=== PATIENT | male | born 1990 | race Caucasian/White ===

== ENCOUNTER 2016-08-07 12:12 | Emergency (ER) | payer OTHER ==
[~2016-08-07] VITALS: Ht 182.9 cm; Wt 79.5 kg
[2016-08-07 12:22] VITALS: BP 129/80; PULSE 86; RESP 16; O2SAT 96
--- NOTE | 2016-08-07 12:34 | ED.REPORT ---
HPI-Extremity Problem Lower Date of Service Aug 07, 2016 ED Provider: Dr. Lindsay 26 y/o male with a hx of prior R ACL tear and two R knee surgeries presents to the ED complaining of right knee pain, onset 4 days ago after a fall while hiking last Wednesday. Pt was seen at urgent care on Wednesday where they took an x- ray and referred him for an MRI for next Wednesday as well as an Orthopedic appt on August 18. He was also prescribed anti-inflammatory medication (he doesn't recall the name) and 5mg Hydrocodone 1q6h which did not seem to help so the pt has been taking 2q6h. He is now out of this medication. He is wearing a knee brace and reports that it makes him feel better but the pain and bruising has still worsened. Pt has experienced similar sx before when he was diagnosed with a torn ACL that required surgery. Nursing Notes Stated Complaint: RT KNEE PAIN Chief Complaint: Extremity Trauma Nursing Notes Reviewed: Yes Allergies: Coded Allergies: No Known Allergies (Unverified , 08/07/16) Scheduled PRN Hydrocodone-Acetaminophen 5-325 mg (Hydrocodone-Acetaminophen 5-325 mg) 1 Each Tablet 1 TABLET PO Q4H PRN PRN For Pain General Time Seen by MD: 12:33 Chief Complaint Knee injury right Hx Obtained From: Patient Arrived By: Walk-in Onset Occurred: 6 days ago Symptom Duration: Since onset Location: : Knee right Quality: Painful Severity: Current: Mild Severity: Maximum: Mild Recent Healthcare: Recent doctor visit Similar Sx Previous: No Past Medical History Past Medical History none reported Past Surgical History Knee surgeries x2 Smoking History Unknown if Ever Smoker Ambulatory Status Independent Review of Systems Musculoskeletal: Reports: Joint pain, Joint swelling Skin: Reports Bruising Complete sys rev & neg: except as marked. Physical Exam Initial Vital Signs Vital Signs (First) Date Time Temp Pulse Resp B/P Pulse Ox O2 Delivery O2 Flow Rate FiO2 08/07/16 12:22 36.8 86 16 129/80 96 Room Air Initial VS: Reviewed, Vital signs normal Head / Eyes: Atraumatic, Normocephalic, PERRL ENT: Mucous membranes moist, Conjunctiva normal, No scleral icterus Neck: Supple, Non-tender, Full range of motion Respiratory: Breath sounds normal, Clear to auscultation, No respiratory distress Cardiovascular: Regular rate & rhythm, Heart sounds normal, Intact distal pulses Abdomen / GI: Soft, Non-tender, No guarding, No rebound, No distention Upper Extremities: Vascular intact, Neuro intact, No swelling, No tenderness Skin: Warm, Dry, No cyanosis Neurologic: Alert, Oriented, Nonfocal Psychiatric: Mood/affect normal, Behavior normal, Normal thought content Lower Extremity / Pelvis / MS: Neurologic intact, Vascular intact Right Leg / Calf: Negative: Erythema present, Swelling present..., Tenderness present... No patellar ballotability or effusion. Mild swelling to his right knee. Vascularly intact. Tenderness on right medial joint space. No cellulitis or signs of infection. Ankle / Foot: Atraumatic, Full range of motion, Neurologic intact, Vascular intact General/Constitutional: Awake, Alert, Cooperative, Not toxic appearing Re-Eval/Medical Decision Med Decision/Clinical Course 26 y/o male with a hx of prior R ACL tear and two R knee surgeries presents to the ED complaining of right knee pain, onset 4 days ago after a fall while hiking last Wednesday. Pt was seen at urgent care on Wednesday where they took an x- ray and referred him for an MRI for next Wednesday as well as an Orthopedic appt on August 18. He was also prescribed anti-inflammatory medication (he doesn't recall the name) and 5mg Hydrocodone 1q6h which did not seem to help so the pt has been taking 2q6h. He is now out of this medication. He is wearing a knee brace and reports that it makes him feel better but the pain and bruising has still worsened. Pt has experienced similar sx before when he was diagnosed with a torn ACL that required surgery. Here in the emergency department the patient is afebrile with stable vital signs and examination as above. There is no evidence of significant joint effusion, redness, warmth or swelling suggestive of septic arthritis. Previous x-rays demonstrated no acute fractures. There is no evidence of dislocation or neurovascular injury. He has good sensation to the foot with intact dorsalis pedis and posterior tibial pulses. There is no evidence of compartment syndrome. Examination is limited due to pain though anterior drawer and posterior drawer testing revealed no objective findings suggestive of anterior cruciate ligament tear. That being said the patient does have history of previous surgery and reports that his symptoms today are similar to prior anterior cruciate ligament tear. He has already been scheduled for an MRI and referred to orthopedic surgery. He already has a knee immobilizer and crutches. Here he was treated with one dose of Hatch and he has been provided with 10 additional tablets as he is running out. He is advised to continue NSAIDs and follow-up as previously instructed. Prior to discharge follow-up and return precautions were reviewed in detail with the patient who verbalized understanding and agreement with the plan. The patient was discharged in stable condition. Re-Evaluation/Progress : Time of Eval: 12:40 Re-Evaluation/Progress Note: Informed the pt of diagnosis and plan to discharge. Pt understood and agreed witht the plan. F/U and RTER instructions given. All questions answered. Counseled Regarding: Diagnosis, Need for follow-up, When/why to return to ED Discharge & Departure Impression: Primary Impression: Right knee injury Encounter type: initial encounter Qualified Code: S89.91XA - Unspecified injury of right lower leg, initial encounter Additional Impression: History of tear of anterior cruciate ligament Disposition: Home Discharge Condition All VS Reviewed: Yes Condition: Stable Additional Instructions: Thank you for seeking care at the emergency room. Our primary goal today in the ED was to evaluate you for any life-threatening conditions. Your evaluation was reassuring. You will be discharged with a prescription for Hatch #10. Use this for severe pain. Make sure to be taking the anti-inflammatory that was previously prescribed to you. This should be taken regularly for a few days for maximum pain relief. Make sure to have the MRI taken as scheduled for Wednesday. Followup with the orthopedic tech on August 17 as scheduled. You should return to the ED immediately if you develop increased pain, numbness , weakness or any other concerning signs or symptoms. Thank you for letting us partake in your care today. Narcotic Pain Medicine You have been prescribed a narcotic for pain relief. These drugs are usually combined with acetaminophen (Tylenol#3, Percocet, Darvocet, Anexsia, Vicodin) or aspirin (Empirin#3, Percodan, Synalogs-DC) for increased effect. Narcotics act on the central nervous system to reduce pain; they also impair mental alertness and physical abilities. We advise you not to drink alcohol, drive a car, or operate dangerous equipment when you are taking these drugs. You can lessen stomach irritation from your medicine by taking it with meals or a full glass of water. Common side effects of narcotics are: Nausea and vomiting, heartburn, constipation, dizziness, sleepiness, and mood changes. If you have bothersome side effects or symptoms of an allergic reaction (itching, hives, rash), stop taking your medicine and call your doctor or the emergency room right away. Please keep your narcotic medicine well out of the reach of children. Referrals: Chanda Bowen MD (PCP) Scribe Attestation Portions of this note were transcribed by Raven Naqvi and Mariana Platt . I, personally performed the history, physical exam and medical decision-making;I reviewed and confirmed the accuracy of the information in the transcribed note. Signed by Raven Naqvi and Alexy Ram. 08/07/16 [id number]. copies to: Chanda Bowen MD, Beck O MD Aug 07, 2016 12:34 Raven Naqvi Aug 07, 2016 12:56 Mariana Platt Aug 07, 2016 13:32
[2016-08-07] MEDS ORDERED: HYDR-4003 PO (12:53)
== END 2016-08-07 13:04 | disposition home or self-care (01) ==
LOC: SED 12:12
DX: S89.91XA Unspecified injury of right lower leg, initial encounter (principal); W18.30XA Fall on same level, unspecified, initial encounter; Y93.01 Activity, walking, marching and hiking; Y92.89 Other specified places as the place of occurrence of the external cause; Y99.8 Other external cause status; Z87.828 Personal history of other (healed) physical injury and trauma; Z98.890 Other specified postprocedural states